=== PATIENT | female | born 1990 | race American Indian/Alaskan Native ===

== ENCOUNTER 2022-02-21 22:01 | Emergency (ER) | payer SELFPAY | END 2022-02-21 23:54 | disposition left against medical advice (07) | LOC: ED 22:01 | DX: M79.18 Myalgia, other site (principal); Z53.21 Procedure and treatment not carried out due to patient leaving prior to being seen by health care provider ==

== ENCOUNTER 2022-02-22 02:11 | Emergency (ER) | payer SELFPAY ==
[2022-02-22 02:58] LABS: Hematocrit 33.1 % (30.3-42.9); Hemoglobin 10.8 gm/dl (10.1-14.3); Mean Corpuscular HGB Conc 33 % (30-34); Mean Corpuscular Volume 82 fl (79-97); Platelet Count 328 K/mm3 (140-440); Red Blood Count 4.05 M/mm3 (3.65-5.03); Red Cell Distribution Width 16.5 % (13.2-15.2)
[2022-02-22 03:05] LABS: Bilirubin,Urine NEG (Negative); Blood,Urine SM (Negative); Color,Urine Yellow (Yellow); Mucus,Urine FEW /HPF; Protein,Urine <15 mg/dL mg/dL (Negative)
[2022-02-22 03:06] LABS: Alanine Aminotransferase 11 units/L (7-56); Albumin 4.7 g/dL (3.9-5); Blood Urea Nitrogen 3 mg/dL (7-17); Calcium 9.2 mg/dL (8.4-10.2); Hemolysis Index 24
[2022-02-22 03:19] LABS: BUN/Creatinine Ratio 5
[2022-02-22 05:38] LABS: Total Cells Counted 100
[2022-02-22 05:39] LABS: Basophils % (Manual) 0 % (0.0-1.8)
[2022-02-22 05:40] LABS: Anisocytosis 1+; Ovalocytes 1+; Platelet Estimate Consistent w Auto
--- NOTE | 2022-02-22 08:25 | Emergency Department Report ---
ED General Adult HPI - General Chief complaint: Abdominal Pain Stated complaint: BODY PAIN Time Seen by Provider: 02/22/22 08:06 Source: patient Mode of arrival: Ambulatory Limitations: No Limitations - History of Present Illness Initial comments: Patient presents with complaints of bilateral lower abdominal pain, sharp, radiating to her back, 04/24, not worsened or relieved by anything. Denies nausea, vomiting. Last BM was today and formed. Endorses flatulence. Denies dysuria, frequency, urgency, vaginal bleeding, discharge. - Related Data Previous Rx's Medication Instructions Recorded Last Taken Type Acetaminophen/Codeine [Tylenol 1 tab PO Q6H PRN 3 Days #12 tab 02/22/22 Unknown Rx /Codeine # 3 tab] Metoclopramide [Reglan TAB] 1 tab PO Q6H PRN #30 tab 02/22/22 Unknown Rx Allergies Allergy/AdvReac Type Severity Reaction Status Date / Time No Known Allergies Allergy Verified 02/22/22 02:23 ED Review of Systems ROS: Stated complaint: BODY PAIN Other details as noted in HPI Comment: All other systems reviewed and negative Constitutional: denies: chills, fever ED Past Medical Hx - Past Medical History Previous Medical History?: No - Surgical History Past Surgical History?: No - Social History Smoking Status: Never Smoker Substance Use Type: None - Medications Home Medications: Home Medications Medication Instructions Recorded Confirmed Last Taken Type Acetaminophen/Codeine [Tylenol 1 tab PO Q6H PRN 3 Days #12 tab 02/22/22 Unknown Rx /Codeine # 3 tab] Metoclopramide [Reglan TAB] 1 tab PO Q6H PRN #30 tab 02/22/22 Unknown Rx ED Physical Exam - General Limitations: No Limitations General appearance: alert, in no apparent distress - Head Head exam: Present: atraumatic, normocephalic - Eye Eye exam: Present: PERRL, EOMI - ENT ENT exam: Present: mucous membranes moist, other (airway patent) - Neck Neck exam: Present: other (supple; no JVD) - Respiratory Respiratory exam: Present: other (good air entry, nml I:E, CTAB, no use of BILL) - Cardiovascular Cardiovascular Exam: Present: regular rate. Absent: rubs, gallop - GI/Abdominal GI/Abdominal exam: Present: soft, other (non distended; non tender; normal BS) - Extremities Exam Extremities exam: Present: full ROM. Absent: tenderness - Back Exam Back exam: Present: full ROM. Absent: CVA tenderness (R), CVA tenderness (L), vertebral tenderness - Neurological Exam Neurological exam: Present: alert, oriented X3, CN II-XII intact. Absent: motor sensory deficit - Skin Skin exam: Present: warm, normal color ED Course Vital Signs 02/22/22 02/22/22 02:17 11:32 Temperature 98.2 F 98.2 F Pulse Rate 68 70 Respiratory 18 16 Rate Blood Pressure 142/84 Blood Pressure 118/72 [Right] O2 Sat by Pulse 98 100 Oximetry ED Medical Decision Making - Lab Data Result diagrams: 02/22/22 02:27 02/22/22 02:27 Laboratory Tests 02/22/22 02/22/22 02/22/22 02:27 02:27 02:27 WBC 5.2 RBC 4.05 Hgb 10.8 Hct 33.1 MCV 82 MCH 27 L MCHC 33 RDW 16.5 H Plt Count 328 Add Manual Diff Complete Total Counted 100 Seg Neutrophils % Playground Aide Seg Neuts % (Manual) 33.0 L Band Neutrophils % 0 Lymphocytes % (Manual) 60.0 H Reactive Lymphs % (Man) 0 Monocytes % (Manual) 5.0 Eosinophils % (Manual) 2.0 Basophils % (Manual) 0 Metamyelocytes % 0 Myelocytes % 0 Promyelocytes % 0 Blast Cells % 0 Nucleated RBC % Not Reportable Seg Neutrophils # Man 1.7 L Band Neutrophils # 0.0 Lymphocytes # (Manual) 3.1 Abs React Lymphs (Man) 0.0 Monocytes # (Manual) 0.3 Eosinophils # (Manual) 0.1 Basophils # (Manual) 0.0 Metamyelocytes # 0.0 Myelocytes # 0.0 Promyelocytes # 0.0 Blast Cells # 0.0 WBC Morphology Not Reportable Hypersegmented Neuts Not Reportable Hyposegmented Neuts Not Reportable Hypogranular Neuts Not Reportable Smudge Cells Not Reportable Toxic Granulation Not Reportable Toxic Vacuolation Not Reportable Dohle Bodies Not Reportable Pelger-Huet Anomaly Not Reportable Elyse Rods Not Reportable Platelet Estimate Consistent w auto Clumped Platelets Not Reportable Plt Clumps, EDTA Not Reportable Large Platelets Not Reportable Giant Platelets Not Reportable Platelet Satelliting Not Reportable Plt Morphology Comment Not Reportable RBC Morphology Not Reportable Dimorphic RBCs Not Reportable Polychromasia Not Reportable Hypochromasia Not Reportable Poikilocytosis Not Reportable Anisocytosis 1+ Microcytosis Not Reportable Macrocytosis Not Reportable Spherocytes Not Reportable Pappenheimer Bodies Not Reportable Sickle Cells Not Reportable Target Cells Not Reportable Tear Drop Cells Not Reportable Ovalocytes 1+ Helmet Cells Not Reportable Peterson-Canova Bodies Not Reportable [place] Rings Not Reportable Danii Cells Not Reportable Bite Cells Not Reportable Crenated Cell Not Reportable Elliptocytes Not Reportable Acanthocytes (Spur) Not Reportable Rouleaux Not Reportable Hemoglobin C Crystals Not Reportable Schistocytes Not Reportable Malaria parasites Not Reportable Clarke Bodies Not Reportable Hem Pathologist Commnt No Sodium 139 Potassium 4.2 Chloride 103.9 Carbon Dioxide 24 Anion Gap 15 BUN 3 L Creatinine 0.6 Estimated GFR > 60 BUN/Creatinine Ratio 5 Glucose 103 H Calcium 9.2 Total Bilirubin 0.30 AST 17 ALT 11 Alkaline Phosphatase 59 Total Protein 7.2 Albumin 4.7 Albumin/Globulin Ratio 1.9 Lipase 23 HCG, Qual Urine Color Urine Turbidity Urine pH Ur Specific [place] Urine Protein Urine Glucose (UA) Urine Ketones Urine Blood Urine Nitrite Urine Bilirubin Urine Urobilinogen Ur Leukocyte Esterase Urine WBC (Auto) Urine RBC (Auto) U Epithel Cells (Auto) Urine Mucus 02/22/22 02/22/22 02:27 02:36 WBC RBC Hgb Hct MCV MCH MCHC RDW Plt Count Add Manual Diff Total Counted Seg Neutrophils % Seg Neuts % (Manual) Band Neutrophils % Lymphocytes % (Manual) Reactive Lymphs % (Man) Monocytes % (Manual) Eosinophils % (Manual) Basophils % (Manual) Metamyelocytes % Myelocytes % Promyelocytes % Blast Cells % Nucleated RBC % Seg Neutrophils # Man Band Neutrophils # Lymphocytes # (Manual) Abs React Lymphs (Man) Monocytes # (Manual) Eosinophils # (Manual) Basophils # (Manual) Metamyelocytes # Myelocytes # Promyelocytes # Blast Cells # WBC Morphology Hypersegmented Neuts Hyposegmented Neuts Hypogranular Neuts Smudge Cells Toxic Granulation Toxic Vacuolation Dohle Bodies Pelger-Huet Anomaly Elyse Rods Platelet Estimate Clumped Platelets Plt Clumps, EDTA Large Platelets Giant Platelets Platelet Satelliting Plt Morphology Comment RBC Morphology Dimorphic RBCs Polychromasia Hypochromasia Poikilocytosis Anisocytosis Microcytosis Macrocytosis Spherocytes Pappenheimer Bodies Sickle Cells Target Cells Tear Drop Cells Ovalocytes Helmet Cells Peterson-Canova Bodies [place] Cells Bite Cells Crenated Cell Elliptocytes Acanthocytes (Spur) Rouleaux Hemoglobin C Crystals Schistocytes Malaria parasites Clarke Bodies Hem Pathologist Commnt Sodium Potassium Chloride Carbon Dioxide Anion Gap BUN Creatinine Estimated GFR BUN/Creatinine Ratio Glucose Calcium Total Bilirubin AST ALT Alkaline Phosphatase Total Protein Albumin Albumin/Globulin Ratio Lipase HCG, Qual Negative Urine Color Yellow Urine Turbidity Clear Urine pH 6.0 Ur Specific [place] 1.019 Urine Protein <15 mg/dl Urine Glucose (UA) Neg Urine Ketones Neg Urine Blood Sm Urine Nitrite Neg Urine Bilirubin Neg Urine Urobilinogen 2.0 Ur Leukocyte Esterase Neg Urine WBC (Auto) 1.0 Urine RBC (Auto) 4.0 U Epithel Cells (Auto) 9.[address] abd/pelvis: wnl - Medical Decision Making Diff dz: unclear etiology. Pancreatitis, UTI, ureterolithiasis, ectopic , appendicitis, SBO and other acute surgical abdomen ruled out. Critical care attestation.: If time is entered above; I have spent that time in minutes in the direct care of this critically ill patient, excluding procedure time. ED Disposition Clinical Impression: Abdominal pain Disposition: 01 HOME / SELF CARE / HOMELESS Is pt being admited?: No Does the pt Need Aspirin: No Condition: Stable Instructions: Abdominal Pain, Adult, [id number], Abdominal Pain (ED) Additional Instructions: Return to the ER if your symptoms worsen. 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
--- NOTE | 2022-02-22 09:23 | Cat Scan Report ---
CT abdomen pelvis w con INDICATION / CLINICAL INFORMATION: lower abdominal pain 100 ML OMNI 300. TECHNIQUE: Axial CT images were obtained through the abdomen and pelvis after 100 cc Omni 300 IV cont rast. All CT scans at this location are performed using CT dose reduction for ALARA by means of auto mated exposure control. COMPARISON: None available. FINDINGS: LOWER CHEST: No significant abnormality LIVER: No significant abnormality GALLBLADDER/BILIARY TREE: No significant abnormality PANCREAS: No significant abnormality SPLEEN: No significant abnormality ADRENALS: No significant abnormality RIGHT KIDNEY / URETER: No significant abnormality LEFT KIDNEY / URETER: No significant abnormality URINARY BLADDER: No significant abnormality REPRODUCTIVE ORGANS: Uterus/adnexa are appropriate for age. No suspicious adnexal mass. STOMACH / BOWEL: Small bowel is normal in caliber. The colon is unremarkable. The appendix is normal in caliber. LYMPH NODES: No significant adenopathy. VASCULATURE: No significant abnormality. OTHER: No free air, free fluid, or focal fluid collection is identified. SKELETAL SYSTEM: No acute osseous findings. IMPRESSION: No acute abnormality of the abdomen or pelvis. Signer Name: Israel Mcintosh MD Signed: 02/22/2022 9:18 AM Workstation Name: [id number]
[2022-02-22 11:34] VITALS: BP 118/72
== END 2022-02-22 11:35 | disposition home or self-care (01) ==
LOC: ED 02:11
DX: R10.30 Lower abdominal pain, unspecified (principal)
CPT/HCPCS: 36415; 74177; 80053; 81001; 83690; 84703; 85007; 85025; 99284; Q9967